=== PATIENT | male | born 1995 | race Caucasian/White ===

== ENCOUNTER 2021-10-19 13:20 | Emergency (ER) | payer SELFPAY ==
[~2021-10-19] VITALS: Ht 175.3 cm; Wt 71.4 kg
[2021-10-19 13:34] VITALS: BP 131/74
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
[2021-10-19] MEDS ORDERED: IBUPROFEN 600 MG TAB PO ONE (14:00)
--- NOTE | 2021-10-19 14:03 | NUR ---
PER ER MID LEVEL, PT WOUND DRESSED AND SHORT METAL FINGER SPLINT APPLIED TO L SHANDA. + CMS AFTER APPLICATION.
[2021-10-19] MEDS ORDERED: BACI1PAC6 TP (14:05)
[2021-10-19] MEDS ORDERED: IBUP-2213 PO (14:05)
[2021-10-19] MEDS ORDERED: AMOX1TAB8 PO (14:05)
[2021-10-19 14:45] VITALS: BP 123/68
--- NOTE | 2021-10-19 14:45 | NUR ---
Patient discharged with v/s stable. Written and verbal after care instructions given and explained. Patient alert, oriented and verbalized understanding of instructions. Ambulatory with steady gait. All questions addressed prior to discharge. ID band removed. Patient advised to follow up with PMD. Rx of IBUPROFEN, BACITRACIN OINT & AMOXICILLIN given. Patient educated on indication of medication including possible reaction and side effects. Opportunity to ask questions provided and answered.
== END 2021-10-19 14:45 | disposition home or self-care (01) ==
LOC: MED 13:20
DX: S60.417A Abrasion of left little finger, initial encounter (principal); X58.XXXA Exposure to other specified factors, initial encounter; Y93.89 Activity, other specified; Y92.89 Other specified places as the place of occurrence of the external cause; Y99.8 Other external cause status
CPT/HCPCS: 90471; 90715; 99283

== ENCOUNTER 2021-12-06 01:17 | Emergency (ER) | payer SELFPAY ==
[~2021-12-06] VITALS: Ht 175.3 cm; Wt 73.9 kg
[~2021-12-06 01:17] MED LIST: AMOX1TAB8 PO; BACI1PAC6 TP; IBUP-2213 PO
[2021-12-06 01:23] VITALS: BP 115/63
[2021-12-06 01:25] VITALS: BP 115/63
--- NOTE | 2021-12-06 01:25 | NUR ---
Patient to Lobby.
--- NOTE | 2021-12-06 02:02 | NUR ---
PATIENT LEFT WITHOUT BEING SEEN BY DR. JACOBO. NO FURTHER CARE PROVIDED FOR PATIENT.
--- NOTE | 2021-12-06 02:02 | NUR ---
Called - no show in lobby or outside.
== END 2021-12-06 02:02 | disposition left against medical advice (07) ==
LOC: MED 01:17
DX: M54.50 Low back pain, unspecified (principal); Z53.21 Procedure and treatment not carried out due to patient leaving prior to being seen by health care provider